=== PATIENT | male | born 1985 | race Caucasian/White ===

== ENCOUNTER → 2022-12-11 | Outpatient (CLI) | payer OTHER ==
[~2022-12-11] MED LIST: AMOXICILLIN 50500 MG PO; BIAXIN 500MG T500 MG PO; SUDAFED 12HR120 MG PO
== END ==
LOC: COL.RAD 13:51
DX: E04.1 Nontoxic single thyroid nodule (principal)

== ENCOUNTER → 2023-07-31 | Outpatient (CLI) | payer OTHER | LOC: COL.RAD 06:43 | DX: E04.1 Nontoxic single thyroid nodule (principal) ==